=== PATIENT | female | born 1945 | race Caucasian/White ===

== ENCOUNTER → 2016-09-13 | Outpatient (CLI) | payer MEDICARE, BC ==
[~2016-09-13] MED LIST: ALLOPURINOL100 MG PO; ARIMIDEX1 MG PO; ATORVASTATIN CA10 M1 PO; AUGMENTIN 875-1 EACH PO; CELEBREX 200MG200 MG PO; CLINDAMYCIN HC300 MG PO; DIFLUCAN 100MG100 MG PO; DITROPAN 5MG TAB5 MG PO; ELIQUIS2.5 MG PO; FUROSEMIDE 40MG40 M1 PO; GLIMEPIRIDE 2MG2 MG PO; GLIMEPIRIDE1 MG PO; GLUCOSAMINE CO1 EAC1 PO; IRON TABLETS325 MG PO; LASIX40 MG PO; LEADER NATUR1000 MCG PO; LEXAPRO 10 MG T10 MG PO; LIPITOR20 MG PO; LISINOPRIL20 MG PO; LISINOPRIL40 MG PO; LYRICA 100 MG100 MG PO; METFORMIN500 MG PO; MUPIROCIN 2% O1 INCH TP; SLOW RELEASE47.5 MG PO; SPIRONOLACTONE25 MG PO; TYLENOL ES500 MG PO; TYLENOL W/120 ML/BOT PO; VITAMIN B121 TA1 PO; VITAMIN D1000 IU PO; VITAMIN D31000 IU PO
[2016-09-13 08:42] LABS: BUN 17 mg/dL (7-18); GFR (ESTIMATED) 49 ML/MIN (59-)
--- NOTE | 2016-09-13 15:29 | RADIOLOGY REPORT PS360 ---
CT ABD PELVIS W/ CONTRAST CLINICAL INDICATION: BREAST CANCER, LUNG NODULES, ABD HERNIA ORDERING PHYSICIAN: Florentin Selby MD PATIENT AGE: 70 years COMPARISON: None TECHNIQUE: Axial images obtained with sagittal and coronal reformats. PROCEDURE: Oral Contrast: Redicat IV Contrast: 75 mL's of Isovue-[id number] . FINDINGS: The liver, spleen, adrenal glands, pancreas, and kidneys have an unremarkable CT appearance. There has been a prior cholecystectomy. No intestinal obstruction or free air. No pelvic mass or abnormal fluid collection. There has been prior hysterectomy. There is diverticulosis of the descending and sigmoid colon with no evidence of diverticulitis. No retroperitoneal or intraperitoneal adenopathy. No destructive bony lesions. 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 IMPRESSION: 1. No interval change with no convincing evidence of metastatic disease. 2. Canal stenosis at L4-L5. 3. Colonic diverticulosis Lower thorax: No acute finding ABDOMEN: Liver: No masses or biliary dilatation. Gallbladder: Nondistended. No radio opaque stones. Pancreas: No masses or peripancreatic fluid collections. Spleen: Unremarkable. Adrenals: Unremarkable Kidneys/ureters: No masses. No renal calculi. No hydronephrosis. No perinephric fluid collections. No ureteral dilatation or obvious ureteral calculi. Stomach bowel: Nondistended. No obvious mass or thickening. Appendix: No evidence of appendicitis. PELVIS: Reproductive: Unremarkable Bladder: Nondistended. No obvious stones or masses. ABDOMEN & PELVIS: Peritoneum: No abnormal fluid collections. No obvious inflammatory changes. No free air. Lymph nodes: No enlarged lymph nodes apparent. Vasculature: No evidence of abdominal aortic aneurysm. No retroperitoneal hemorrhage evident. Bones: No acute fracture IMPRESSION: Negative, no acute intra-abdominal or pelvic pathology apparent
--- NOTE | 2016-09-13 15:39 | RADIOLOGY REPORT PS360 ---
CT CHEST W/ CONTRAST INDICATION: BREAST CANCER, LUNG NODULES, ABD HERNIA ORDERING PHYSICIAN: Florentin Selby MD PATIENT AGE: 70 years COMPARISON: To 12/13 and 08/26/2016 TECHNIQUE: Axial images are obtained with contrast. Sagittal and coronal reformatted images are reviewed as well. FINDINGS: No mediastinal or hilar mass or adenopathy is evident. Filling defects are noted in the peripheral aspect of the right main pulmonary artery and the descending branch of the right main pulmonary artery similar to the previous study consistent with pulmonary emboli.. There is evidence of old granulomatous disease. Persistent 6 mm nodule is present in the left lung base not significantly changed. No new nodules are evident. There is some pleural thickening in the left apex posteriorly. No lytic or blastic bony lesions are evident. No infiltrates or effusions. IMPRESSION: 1. Persistent pulmonary edema line noted on the right unchanged from 08/26/2016. 2. Otherwise, overall no change from 09/04/2015 with no convincing evidence of metastatic disease
--- NOTE | 2016-09-15 09:13 | RADIOLOGY REPORT PS360 ---
DIG MAMM-SCREEN MOUNA W/CAD CAD Screening COMPARISON: Digital mammograms 04/27/2015 and right mammogram 02/04/2014 INDICATION: There is a history of breast cancer patient's mother diagnosed after menopause and is been previous lumpectomy right breast for carcinoma February 2014. The patient was difficult to position having a yeast infection inframammary fold of each breast TECHNIQUE: Standard CC and MLO images were obtained. R2 CAD reviewed. FINDINGS: The breasts are composed primarily of fat with scattered fibroglandular densities throughout both breasts. Again noted is moderate post lumpectomy scarring upper outer quadrant right breast. There are few scattered benign-appearing calcifications in each breast. There is minimal arterial calcification in each breast. There is no suspicious lesion and no suspicious microcalcifications. IMPRESSION: Stable exam with prominent postlumpectomy scarring right breast recommend yearly follow-up BI-RADS CATEGORY: 2_Benign RECOMMENDED FOLLOWUP: 12M 12 MONTH FOLLOW-UP (A letter has been sent to the patient regarding results of the study.)
== END ==
LOC: RAD 08:24
PROVIDERS: Internal Medicine
DX: C50.911 Malignant neoplasm of unspecified site of right female breast (principal); Z03.89 Encounter for observation for other suspected diseases and conditions ruled out; Z12.31 Encounter for screening mammogram for malignant neoplasm of breast
CPT/HCPCS: G0202; Q9967